=== PATIENT | female | born 1975 | race Caucasian/White ===

== ENCOUNTER 2020-03-08 10:08 | Outpatient (CLI) | payer BC, OTHER, SELFPAY ==
--- NOTE | 2020-03-08 10:19 | MM_ITS ---
WS: [id number] BILATERAL DIGITAL SCREENING MAMMOGRAPHY WITH CAD CLINICAL INFORMATION: SCREEN HISTORY: Screening mammogram. No current complaints. COMPARISON: None. TECHNIQUE: Bilateral CC and MLO views. FINDINGS: Scattered fibroglandular densities bilaterally. No suspicious focal mass, asymmetry, calcifications, or architectural distortion. No evidence of malignancy. MM/[place] [id number] IMPRESSION: BI-RADS: 1-Negative FOLLOW UP: 1 Year Follow-up Recommend return to annual screening mammography.
== END 2020-03-08 10:09 | disposition home or self-care (01) ==
LOC: RADSHAW 10:12
PROVIDERS: PCP Family Medicine; Visit Provider Family Medicine
DX: Z12.31 Encounter for screening mammogram for malignant neoplasm of breast (principal)
CPT/HCPCS: 77067

== ENCOUNTER 2020-07-13 10:25 | Outpatient (CLI) | payer BC, SELFPAY ==
--- NOTE | 2020-07-13 10:52 | XR_ITS ---
WS: [id number] Chest 2 views, 07/13/2020 Clinical Data: COUGH Comparison: PA chest, 05/05/2019. Findings: No nodules, masses or effusions are seen. The heart is normal. The pulmonary vascularity is not increased. No pneumonia or pneumothorax is seen. There is a slight dextroscoliosis of the lower thoracic spine. XR/XR chest 2V* 19782 Impression: Negative chest.
== END 2020-07-13 10:26 | disposition home or self-care (01) ==
PROVIDERS: PCP Family Medicine; Visit Provider Family Medicine
DX: R05 Cough (principal)
CPT/HCPCS: 71046

== ENCOUNTER 2021-09-25 08:59 | Outpatient (CLI) | payer BC, SELFPAY ==
--- NOTE | 2021-09-25 09:25 | MM_ITS ---
WS: [id number] BILATERAL 3D TOMOSYNTHESIS DIGITAL SCREENING MAMMOGRAPHY WITH CAD CLINICAL INFORMATION: SCREENING HISTORY: Screening mammogram. No current complaints. COMPARISON: March 08, 2020 TECHNIQUE: Bilateral CC and MLO views. FINDINGS: Scattered fibroglandular densities bilaterally. No suspicious focal mass, asymmetry, calcifications, or architectural distortion. No evidence of malignancy. MM/[place] [id number] IMPRESSION: BI-RADS: 1-Negative FOLLOW UP: 1 Year Follow-up Recommend return to annual screening mammography.
== END 2021-09-25 09:00 | disposition home or self-care (01) ==
LOC: RAD 09:01
PROVIDERS: PCP Family Medicine; Visit Provider Family Medicine
DX: Z12.31 Encounter for screening mammogram for malignant neoplasm of breast (principal)
CPT/HCPCS: 77063; 77067

== ENCOUNTER → 2022-11-28 08:36 | Outpatient (BNVA) | payer OTHER, SELFPAY | PROVIDERS: PCP Family Medicine; Visit Provider Family Medicine | DX: Z00.00 Encounter for general adult medical examination without abnormal findings (principal); Z78.9 Other specified health status | CPT/HCPCS: 80053; 80061; 84443; 87624 ==

== ENCOUNTER 2022-12-14 11:10 | Outpatient (CLI) | payer OTHER, SELFPAY ==
--- NOTE | 2022-12-14 11:22 | MM_ITS ---
WS: [id number] BILATERAL 3D TOMOSYNTHESIS DIGITAL SCREENING MAMMOGRAPHY WITH CAD CLINICAL INFORMATION: SCREENING HISTORY: Screening mammogram. No current complaints. COMPARISON: September 25, 2021 TECHNIQUE: Bilateral CC and MLO views. FINDINGS: Scattered fibroglandular densities bilaterally. No suspicious focal mass, asymmetry, calcifications, or architectural distortion. No evidence of malignancy. MM/[place] [id number] IMPRESSION: BI-RADS: 1-Negative FOLLOW UP: 1 Year Follow-up Recommend return to annual screening mammography.
== END 2022-12-14 11:11 | disposition home or self-care (01) ==
LOC: RAD 11:14
PROVIDERS: PCP Family Medicine; Visit Provider Family Medicine
DX: Z12.31 Encounter for screening mammogram for malignant neoplasm of breast (principal)
CPT/HCPCS: 77063; 77067; 80053; 80061; 84443; 87624

== ENCOUNTER → 2023-04-01 16:02 | Outpatient (BNVA) | payer OTHER, SELFPAY | PROVIDERS: PCP Family Medicine; Visit Provider Family Medicine | DX: R19.7 Diarrhea, unspecified (principal); R10.9 Unspecified abdominal pain | CPT/HCPCS: 80053; 83690; 85025; 86140 ==

== ENCOUNTER → 2023-04-03 08:30 | Outpatient (BNVA) | payer OTHER, SELFPAY | PROVIDERS: PCP Family Medicine; Visit Provider Family Medicine | DX: R10.9 Unspecified abdominal pain (principal); R19.7 Diarrhea, unspecified | CPT/HCPCS: 87045; 87177; 87209; 87324; 87427; 87449 ==

== ENCOUNTER → 2023-09-06 09:53 | Outpatient (BNVA) | payer OTHER, SELFPAY | PROVIDERS: PCP Family Medicine; Visit Provider Clinical Nurse Specialist Adult Health | DX: N92.1 Excessive and frequent menstruation with irregular cycle (principal); N85.2 Hypertrophy of uterus; D25.9 Leiomyoma of uterus, unspecified; R93.89 Abnormal findings on diagnostic imaging of other specified body structures | CPT/HCPCS: 82728; 83550; 84466; 85025; 85610 ==

== ENCOUNTER 2023-09-11 08:13 | Outpatient (CLI) | payer OTHER, SELFPAY ==
--- NOTE | 2023-09-11 08:30 | US_ITS ---
WS: [id number] Pelvic ultrasound, 09/11/2023 Clinical Data: heavy menstrual cycles and ovarian pain Comparison: Pelvic ultrasound, 02/20/2018 Findings: The uterus measures 13.7 cm x 8.4 cm x 7.3 cm. The uterine echotexture is mixed with multiple uterine fibroids. The endometrium is 1.1 cm. No intrauterine is seen. The endometrium appears thickened. The cervix shows no abnormalities. The ovaries were not imaged. There is no fluid in the cul-de-sac. Impression: Enlarged uterus with multiple uterine fibroids and thickened endometrium.
== END 2023-09-11 08:14 | disposition home or self-care (01) ==
LOC: RAD 08:13
PROVIDERS: PCP Family Medicine; Visit Provider Clinical Nurse Specialist Adult Health
DX: N92.1 Excessive and frequent menstruation with irregular cycle (principal); N85.2 Hypertrophy of uterus; R93.89 Abnormal findings on diagnostic imaging of other specified body structures; D25.9 Leiomyoma of uterus, unspecified
CPT/HCPCS: 76830; 76856; 82728; 83550; 84466; 85025; 85610

== ENCOUNTER 2023-10-22 13:26 | Day surgery (SDC) | payer OTHER, SELFPAY ==
[2023-10-21 09:26] LABS: Basophils # 0.1 10^3/uL (0.0-0.1); Basophils % 0.8 %; Eosinophils # 0.1 10^3/uL (0.0-0.8); Eosinophils % 1.2 %; Hematocrit 38.7 % (36-47); Lymphocytes # 2.4 10^3/uL (0.8-4.8); Mean Corpuscular Hemoglobin 30.6 pg (27-33); Mean Corpuscular Volume 95.6 fl (85-98); Mean Platelet Volume 10.4 fL (7.4-10.4); Monocytes # 0.5 10^3/uL (0.2-0.9); Monocytes % 6.1 %; Neutrophils # 5.52 10^3/uL (1.8-7.7); Neutrophils % 63.4 %; Nucleated Red Blood Cells % 0 %; Platelet Count 280 10^3/cmm (157-399); Red Blood Count 4.05 10^6/uL (3.85-5.65); Red Cell Distribution Width 13.6 % (12.1-15.1); White Blood Count 8.69 10^3/uL (3.29-11.43)
[2023-10-21 09:49] LABS: Anion Gap 17.1 (5-19); Blood Urea Nitrogen 11 mg/dL (6-20); Calcium 9.1 mg/dL (8.5-10.5); Carbon Dioxide 24 mmol/L (22-29); Chloride 104 mmol/L (98-107); Glomerular Filtration Rate 132.2 mL/min (90-130); Glucose 117 mg/dL (65-115); Osmolality Calculated 292 mOsm/kg (285-295); Potassium 4.1 mmol/L (3.5-5.1); Sodium 141 mmol/L (136-145)
[2023-10-22] VITALS (9 sets, daily range): BP systolic 135–201; BP diastolic 78–119; PULSE 82–89; RESP 16–18; TEMP 36.1–37.2; O2SAT 95–100
--- NOTE | 2023-10-22 13:08 | ANES.PREANE2 ---
Pre-Anesthetic Assessment Height/Weight: Height 1.6 m Operation Date: 10/22/23 15:00 Proposed Procedures p Hysteroscopy w/ Myosure 16705, 82249, N93.9, R93.89(Not Applicable) - Pradip Fofana MD s Dilation And Curettage (D&C)(Not Applicable) - Pradip Fofana MD Was Beta Marnie taken within 24 hours: Yes Social No alcohol and No tobacco Exam alert, oriented x 3, clear to auscultation bilaterally and regular rate & rhythm Airway Submandibular: within normal limits Cervical ROM: within normal limits Mallampati: Class II History/ROS No significant history except as noted GI Cholelithiasis Metabolic Obesity Neuropsych Headache Anesthetic Plan ASA status: 2 Anesthesia: General Medications/Allergies Home Medications Medication Instructions Recorded Confirmed Last Taken Type atorvastatin 10 mg tablet (Lipitor) 10 mg PO DAILY #90 tabs 11/28/22 10/21/23 10/20/23 Rx escitalopram oxalate 10 mg tablet 10 mg PO DAILY #90 tabs 11/28/22 10/21/23 10/21/23 Rx (Lexapro) metoclopramide HCl 10 mg tablet 10 mg PO TID PRN nausea and 11/28/22 10/21/23 Unknown Rx (Reglan) vomiting #60 tabs norethindrone 0.5 mg-ethinyl 1 tab PO DAILY #84 tabs 11/28/22 10/21/23 10/20/23 Rx estradiol 35 mcg tablet (Nortrel) sumatriptan succinate 100 mg 50 mg (1/2 x 100 mg) PO .Q4 PRN 11/28/22 10/21/23 Unknown Rx tablet (Imitrex) migraine headache #10 tabs propranolol 20 mg tablet 20 mg PO BID #180 tabs 10/02/23 10/21/23 10/21/23 Rx cholestyramine (with sugar) 4 gram 1 ea PO DAILY 10/21/23 10/21/23 10/21/23 History oral powder ferrous sulfate 27 mg iron tablet 27 mg PO DAILY 10/21/23 10/21/23 10/20/23 History Allergies Allergy/AdvReac Type Severity Reaction Status Date / Time Penicillins Allergy Intermediate rash Verified 10/17/23 13:53 simvastatin [From Zocor] Allergy Intermediate back pain Verified 10/17/23 13:53 Sulfa (Sulfonamide Allergy Intermediate hives Verified 10/17/23 13:53 Antibiotics) [facility] Anesthesia Medical History Migraine Hyperlipidemia Female Reproductive History Date of last menstrual period: 09/03/23 Data Anesthesia 10/21/23 09:18 10/21/23 09:18 Short CBC 10/21/23 Range/Units 09:18 WBC 8.69 (3.29-11.43) 10^3/uL Hgb 12.40 (11.27-16.99) g/dL Hct 38.7 (36-47) % MCV 95.6 (85-98) fl Plt Count 280 (157-399) 10^3/cmm Neut % (Auto) 63.4 % Neut # (Auto) 5.52 (1.8-7.7) 10^3/uL BMP 10/21/23 09:18 Sodium 141 Potassium 4.1 Chloride 104 Carbon Dioxide 24 BUN 11 Creatinine 0.5 Glucose 117 H Calcium 9.1 Cardiac Studies: No Data to Display
[2023-10-22] MEDS: sodium chloride 0.9% 1,000 ML 30 ML IV (13:55)
[2023-10-22] MEDS: levofloxacin-dextrose 5 % 500 MG/100 ML PREMIX 100 MG IV (13:57)
[2023-10-22] MEDS: scopolamine 1.5 Patch 1 PATCH TRANSDERMA (14:01)
[2023-10-22 14:07] LABS: OR HCG Qualitative Urine Negative (Negative)
--- NOTE | 2023-10-22 14:25 | W.PM.OPSUD ---
Surgery/Procedure H&P Update DATE OF PROCEDURE: October 22, 2023 DATE H&P PERFORMED: 10/17/23 H&P UPDATE INFORMATION: I have reviewed H&P completed within last 30 days, I have examined patient prior to procedure and No changes to prior documentation PREOP DIAGNOSIS: Menorrhagia with irregular cycle PLANNED PROCEDURE: Operation Date: 10/22/23 15:00 Proposed Procedures p Hysteroscopy w/ Myosure 71694, 26508, N93.9, R93.89(Not Applicable) - Pradip Fofana MD s Dilation And Curettage (D&C)(Not Applicable) - Pradip Fofana MD
[2023-10-22] MEDS: vancomycin 1,000 MG in sodium chloride 0.9% 250 ML 250 MG IV (14:34)
[2023-10-22] MEDS: lidocaine-epi 2% PF 1:200,000 20 mL SDV XX (15:05)
--- NOTE | 2023-10-22 15:25 | PM.OP ---
Operative Report Date of procedure: October 22, 2023 Pre-op diagnosis: Menorrhagia with irregular cycle Post-op diagnosis: same Post-op findings: Endometrial polyp Procedure done: Hysteroscopy Hysteroscopic polypectomy via MyoSure Specimens removed/disposition: Endometrial polyp Pathology: Endometrial polyp Surgeon: Pradip oFfana MD Estimated blood loss (mL): 20 IV fluids (mL): 400 Complications: None Findings: Endometrial polyp Procedure: After informed consent, the risks included but were not limited to bleeding, infection, injury to internal organs. The patient was counseled on a possible laparotomy and on the potential need for hysterectomy. The patient expressed understanding of the risks involved, all questions were answered, and the patient consented to the procedure. The patient was taken to the operating room where general anesthesia was administered. She was placed in the dorsal lithotomy position and prepped and draped in sterile fashion. A time out procedure was performed. The patient was examined under anesthesia and found to have a normal uterus with normal adnexa. A sterile weight speculum was placed in the vagina. The uterus was then gently sounded to 8 cm, and the cervix was dilated. The 0 degrees MyoSure hysteroscope was advanced gently to the uterine fundus while visualizing the monitor. Survey of the uterine cavity showed: Endometrial polyp to right anterior/fundal wall, the fundus shows normal proliferative endometrium; left ostium was visualized, and lateral wall with proliferative endometrium; right ostium visualized, and lateral wall with proliferative endometrium; anterior and posterior gandhi are with proliferative endometrium; endocervical canal is normal. The MyoSure device was advanced and the direct visualization the the endometrial polyp was morcellated without complication. At the end of morcellation the fluid deficit was 325 mL and was estimated at approximately 200 mL were on the floor. There was minimal bleeding noted and the tenaculum removed with goad hemostasis noted. The patient tolerated the procedure well. The patient was taken to the recovery area in stable condition.
--- NOTE | 2023-10-22 16:47 | ANE.PACU2 ---
Inpatient post-anesthesia follow up: Vital signs: Temperature 98.9 F Pulse Rate 86 Respiratory Rate 18 Blood Pressure 153/81 Pulse Oximetry 96 Oxygen Delivery Me thod Room Air Oxygen Flow Rate 6 Fraction of Inspir ed Oxygen Hydration adequate: Yes Nausea and vomiting: No Pain level: 3 Mental status: Baseline
== END 2023-10-22 16:39 | disposition home or self-care (01) ==
PROVIDERS: PCP Family Medicine; Visit Provider Obstetrics & Gynecology
PROC: 0UDB8ZZ Extraction of Endometrium, Via Natural or Artificial Opening Endoscopic (ICD-10-PCS; CPT 58558; principal; 2023-10-22 14:50)
PROC: (CPT 58120; 2023-10-22 14:50)
DX: N92.1 Excessive and frequent menstruation with irregular cycle (principal); E66.9 Obesity, unspecified; Z68.42 Body mass index [BMI] 45.0-49.9, adult; E78.5 Hyperlipidemia, unspecified
CPT/HCPCS: 58558; 36415; 80048; 81025; 85025; 86850; 86900; 88305; J1100; J1885; J1956; J2250; J2405; J2704; J3010; J3370; J7030; J7050

== ENCOUNTER → 2023-12-10 10:36 | Outpatient (BNVA) | payer OTHER, SELFPAY | PROVIDERS: PCP Family Medicine; Visit Provider Family Medicine | DX: E78.5 Hyperlipidemia, unspecified (principal); G43.909 Migraine, unspecified, not intractable, without status migrainosus; Z79.899 Other long term (current) drug therapy | CPT/HCPCS: 80053; 80061 ==

== ENCOUNTER 2023-12-23 14:46 | Outpatient (CLI) | payer OTHER, SELFPAY ==
--- NOTE | 2023-12-23 14:52 | MM_ITS ---
WS: [id number] SCREENING DIGITAL TOMOSYNTHESIS MAMMOGRAM WITH CAD HISTORY: SCREEN COMPARISON: 12/14/2022, 09/25/2021 Bilateral CC and MLO with tomosynthesis views submitted. Synthetic mammography reviewed. Computer aid ed detection analyzed. Breast composition: There are scattered areas of fibroglandular density. No suspicious masses, microc alcifications or architectural distortion. MM/[place] [id number] IMPRESSION: BI-RADS: 1-Negative FOLLOW UP: 1 Year Follow-up
== END 2023-12-23 14:47 | disposition home or self-care (01) ==
LOC: RAD 14:47
PROVIDERS: PCP Family Medicine; Visit Provider Family Medicine
DX: Z12.31 Encounter for screening mammogram for malignant neoplasm of breast (principal); R92.323 Mammographic fibroglandular density, bilateral breasts
CPT/HCPCS: 77063; 77067

== ENCOUNTER 2024-03-10 12:28 | Inpatient (IN) | payer OTHER, SELFPAY ==
--- NOTE | 2024-03-09 12:28 | ANES.PREANE2 ---
Pre-Anesthetic Assessment Height/Weight: Height 5 ft 3 in Preop Diagnosis: Desire for sterilization/hysterectomy Operation Date: 03/10/24 08:00 Proposed Procedures p Total Vaginal Hysterectomy 76209, D25.9, 12698(Not Applicable) - Pradip Fofana MD s Oophorectomy (Vaginal)(Bilateral) - Pradip Fofana MD Was Beta Marnie taken within 24 hours: N/A Was Clonidine taken within 24 hours: N/A Social No alcohol and No tobacco Exam alert, oriented x 3, clear to auscultation bilaterally and regular rate & rhythm Airway Submandibular: within normal limits Cervical ROM: within normal limits Mallampati: Class II Dentition: full Anesthetic Plan ASA status: 2 Anesthesia: General Other: No prior issues with anesthesia Plan for n.p.o. after midnight Patient denies any pulmonary or cardiac issues Occasional migraines Labs 12/10/2023 reviewed METs greater than 4 Plan for GETA Medications/Allergies Home Medications Medication Instructions Recorded Confirmed Last Taken Type metoclopramide HCl 10 mg tablet 10 mg PO TID PRN nausea and 11/28/22 03/09/24 Unknown Rx (Reglan) vomiting #60 tabs sumatriptan succinate 100 mg 50 mg (1/2 x 100 mg) PO .Q4 PRN 11/28/22 03/09/24 Unknown Rx tablet (Imitrex) migraine headache #10 tabs acetaminophen 325 mg capsule 325 mg PO Q4H PRN fever or pain 10/22/23 03/09/24 Unknown Rx #60 caps ibuprofen 800 mg tablet 800 mg PO TID PRN pain #60 tabs 10/22/23 03/09/24 Unknown Rx cholestyramine (with sugar) 4 gram 1 ea PO DAILY #378 grams 12/09/23 03/09/24 03/09/24 Rx oral powder escitalopram oxalate 10 mg tablet 10 mg PO DAILY #90 tabs 12/09/23 03/09/24 03/09/24 Rx (Lexapro) norethindrone 0.5 mg-ethinyl 1 tab PO DAILY #84 tabs 12/09/23 03/09/24 03/09/24 Rx estradiol 35 mcg tablet (Nortrel) propranolol 20 mg tablet 20 mg PO BID #180 tabs 12/09/23 03/09/24 03/09/24 Rx atorvastatin 20 mg tablet 20 mg PO DAILY #90 tabs 12/30/23 03/09/24 03/09/24 Rx Allergies Allergy/AdvReac Type Severity Reaction Status Date / Time Penicillins Allergy Intermediate rash Verified 03/05/24 15:54 simvastatin [From Zocor] Allergy Intermediate back pain Verified 03/05/24 15:54 Sulfa (Sulfonamide Allergy Intermediate hives Verified 03/05/24 15:54 Antibiotics) PFSH Anesthesia Medical History Migraine Hyperlipidemia Social History Smoking and tobacco/nicotine status: never used tobacco/nicotine Female Reproductive History Date of last menstrual period: 02/26/24 Data Anesthesia Cardiac Studies: No Data to Display
[2024-03-10] VITALS (36 sets, daily range): BP systolic 65–193; BP diastolic 41–116; PULSE 88–118; RESP 16–25; TEMP 36.1–37; O2SAT 91–100; BMI 47.9; BMI 48.8
[2024-03-10 08:07] LABS: Add Urine Microscopic? NO
[2024-03-10] MEDS: scopolamine 1.5 Patch 1 PATCH TRANSDERMA (08:17)
[2024-03-10] MEDS: sodium chloride 0.9% 500 ML IV (08:17)
[2024-03-10 08:18] LABS: Bilirubin Urine Neg (Negative); Blood Urine Neg (Negative); Charge for UA Resulting for Rev; Glucose Urine UA Norm (Normal); Ketones Urine Negative (Negative); Leukocyte Esterase Urine Negative (Negative); Nitrate Urine Negative (Negative); Protein Urine Neg (Negative); Urine Appearance Clear (CLEAR); Urine Color Yellow (Yellow); Urobilinogen Urine Norm (Negative); pH Urine 5 (5-7)
[2024-03-10] MEDS: sodium chloride 0.9% 1,000 ML 30 ML IV (08:18)
[2024-03-10 08:35] LABS: Basophils # 0.1 10^3/uL (0.0-0.1); Basophils % 0.8 %; Eosinophils # 0.1 10^3/uL (0.0-0.8); Eosinophils % 1.4 %; Hematocrit 39.7 % (36-47); Lymphocytes # 2.4 10^3/uL (0.8-4.8); Lymphocytes % 27.9 %; Mean Corpuscular HGB Conc 32.5 g/dL (30-55); Mean Corpuscular Hemoglobin 29.9 pg (27-33); Mean Corpuscular Volume 92.1 fl (85-98); Mean Platelet Volume 10.4 fL (7.4-10.4); Monocytes # 0.6 10^3/uL (0.2-0.9); Monocytes % 7.5 %; Neutrophils # 5.22 10^3/uL (1.8-7.7); Neutrophils % 61.9 %; Nucleated Red Blood Cells % 0 %; Platelet Count 262 10^3/cmm (157-399); Red Blood Count 4.31 10^6/uL (3.85-5.65); Red Cell Distribution Width 12.7 % (12.1-15.1); White Blood Count 8.43 10^3/uL (3.29-11.43)
--- NOTE | 2024-03-10 08:37 | P.ANESUD_ITS ---
Pre-Anesthetic Update Pre-Anesthetic Assessment: Date of Surgery/Procedure: 03/10/24 Preop Dania gnosis: Uterine fibroids Proposed Procedure: Operation Date: 03/10/24 09:20 Proposed Procedures p Total Vaginal Hysterectomy 02672, D25.9, 01475(Not Applicable) - Pradip Fofana MD s Oophorectomy (Vaginal)(Bilateral) - Pradip Fofana MD Changes from Pre-Anesthetic Assessment: No changes since yesterday Patient's is present Plan for GETA Last Intake: Intake Last Liquid Date 03/09/24 Last Liquid Time 21:00 Last Solid Date 03/09/24 Last Solid Time 18:00 Labs Last 48hrs: Short CBC 03/10/24 Range/Units 08:20 WBC 8.43 (3.29-11.43) 10^ 3/uL Hgb 12.90 (11.27-16.99) g/ dL Hct 39.7 (36-47) % MCV 92.1 (85-98) fl Plt Count 262 (157-399) 10^3/c mm Neut % (Auto) 61.9 % Neut # (Auto) 5.22 (1.8-7.7) 10^3/u L Urine 03/10/24 Range/Units 08:00 Urine Color Yellow (Yellow) Urine Appearance Clear (CLEAR) Urine pH 5 (5-7) Ur Specific Gravit y 1.020 (1.005-1.030) Urine Protein Neg (Negative) Urine Glucose (UA) Norm (Normal) Urine Ketones Negative (Negative) Urine Nitrate Negative (Negative) Urine Bilirubin Neg (Negative) Ur Leukocyte Alcira ase Negative (Negative) Vitals: Pulse Rhythm Regular 03/10/24 08:10 Pulse Strength 3+ Normal 03/10/24 08:10 Oxygen Delivery Me thod Room Air 03/10/24 08:10 Cardiac Studies: No Data to Display
[2024-03-10] MEDS: levofloxacin-dextrose 5 % 500 MG/100 ML PREMIX 100 MG IV (08:43)
[2024-03-10 08:49] LABS: OR HCG Qualitative Urine Negative (Negative)
[2024-03-10 08:58] LABS: Alanine Aminotransferase 20 U/L (0-33); Albumin Level 4.2 g/dL (3.5-5.2); Alkaline Phosphatase 83 U/L (35-105); Anion Gap 21.3 (5-19); Aspartate Amino Transferase 26 U/L (0-32); Blood Urea Nitrogen 14 mg/dL (6-20); Calcium 9.6 mg/dL (8.5-10.5); Carbon Dioxide 21 mmol/L (22-29); Chloride 101 mmol/L (98-107); Creatinine Clr Calc Pharmacy 177.0052; Globulin 3.6 g/dL (1.3-4.6); Glomerular Filtration Rate 132.2 mL/min (90-130); Glucose 122 mg/dL (65-115); Osmolality Calculated 290 mOsm/kg (285-295); Potassium 4.3 mmol/L (3.5-5.1); Sodium 139 mmol/L (136-145); Total Bilirubin 0.4 mg/dL (0.15-1.2); Total Protein 7.8 g/dL (6.6-8.7)
--- NOTE | 2024-03-10 08:59 | W.PM.OPSUD ---
Surgery/Procedure H&P Update DATE OF PROCEDURE: March 10, 2024 DATE H&P PERFORMED: 03/05/24 H&P UPDATE INFORMATION: I have reviewed H&P completed within last 30 days, I have examined patient prior to procedure and No changes to prior documentation PREOP DIAGNOSIS: Uterine fibroids PLANNED PROCEDURE: Operation Date: 03/10/24 09:20 Proposed Procedures p Total Vaginal Hysterectomy 38652, D25.9, 86800(Not Applicable) - Pradip Fofana MD s Oophorectomy (Vaginal)(Bilateral) - Pradip Fofana MD
[2024-03-10] MEDS: metroNIDAZOLE IV 500 MG/100 ML PREMIX 100 MG IV (09:07)
[2024-03-10] MEDS: lidocaine-epi 2% PF 1:200,000 20 mL SDV INJECTION (10:38)
--- NOTE | 2024-03-10 12:07 | PM.OP ---
Operative Report Date of procedure: March 10, 2024 Pre-op diagnosis: Fibroid uterus, abnormal uterine bleeding Post-op diagnosis: same Post-op findings: Irregular fibroid uterus Procedure done: Total abdominal hysterectomy with bilateral salpingo-oophorectomy Specimens removed/disposition: Uterus Left the right fallopian tube and ovaries Surgeon: Pradip Fofana MD Estimated blood loss (mL): 1,000 IV fluids: NA: 1600 ml Albumin: 250 ml Urine output (mL): 50 Complications: Bleeding Findings: enlarged irregular uterus. Procedure: After informed consent and risks, benefits, indications and alternatives reviewed with the patient was taken to the operating room. The patient was placed in dorsal lithotomy position prepped, and draped in the usual sterile fashion. The pre-procedure timeout verifying the correct patient, procedure, site and side, could not requirements was performed and acknowledge by the OR team. A Mcguire catheter was placed. A Bookwalter vaginal retractor was placed into the vagina in usual manner visualize the cervix. Cervix was grasped with a single tooth tenaculum and circumferentially infiltrated with 2% lidocaine with epinephrine. Then cervix was circumferentially incised with bovie and the bladder was dissected off the pubovesical cervical fascia anteriorly with a sponge stick and Metzenbaum scissors. The anterior peritoneal reflection was identified and the anterior cul-de-sac was entered sharply with Metzenbaum scissors. The same procedure was performed posteriorly and a posterior colpotomy was made through the posterior cul-de-sac space without difficulty and the posterior blade of the Bookwalter vaginal retractor was advanced posteriorly into the cul-de-sac. At this time, the left and right uterosacral ligaments were isolated and ligated with 0 Vicryl. The LigaSure device was placed over the uterosacral ligaments on either side and was then used in a serial fashion up through the cardinal ligaments bilaterally cross-clamped, cut, and sealed with the LigaSure device. Finally, the uterine arteries were cross-clamped, cut, sealed and ligated with the LigaSure device. Hemostasis was assured. The broad ligaments were then serially clamped, sealed and cut with the LigaSure device on both sides. Excellent hemostasis was visualized. Both cornua were clamped, sealed and cut with the LigaSure device. Then the pedicles were then suture ligated with hemostasis. The uterus was excised and submitted for pathologic evaluation. Significant bleeding noted from left side. The pedicle was grasped to Lloyd clamps clamps grasped with ligasure device, sealed and ligated ligated. The same procedure was performed on the opposite side. Bleeding was controlled. No other abnormalities were noted in the pelvic cavity. Then the right side Infundibular ligament was identified. The ureter was confirmed along the pelvic side wall. With moderate dificulty due to body habitus the LigaSure device was then used to clamp, sealed and transcepted at middistance, again being sure to be clear of the ureter and the fallopian tube and ovary were removed. The same process was then repeated on the left side. Good hemostasis was assure on both sides. Surgicell was place at the cuff. The peritoneum was then closed in a pursestring fashion with 0 Vicryl suture. The vaginal cuff angles were closed with [id number] #0 Vicryl suture on both sides and transfixed with the ipsilateral cardinal and uterosacral ligaments. The remainder of the vaginal cuff was closed with #0 Vicryl in a running locked fashion. At this time, instruments were removed from the vagina at hemostasis assured. Type and crossmatch for 2 units of packed red blood cells was ordered due to to the complication of bleeding. Mcguire catheter was noted yielding clear eric urine. A vaginal packing was placed and the patient was taken out of dorsal lithotomy position and awakened from the general anesthesia. The patient tolerated the procedure well and was taken to the PACU recovery room in a stable condition. Sponge, lap, needle and instruments counts were correct x3.
--- NOTE | 2024-03-10 12:25 | P.BOP_ITS ---
Date of Procedure: 03/10/24 Surgeon: Pradip Fofana MD Long Term Care Phlebotomist(s): Procedure(s) performed: Total vaginal hysterectomy with bilateral salpingo- oophorectomy Findings of the procedure(s): Enlarged irregular uterus Estimated blood loss: 1000 Specimen(s) removed: Uterus, left and right fallopian tube and ovary Post-operative diagnosis: Status post TVH and BSO Complication: Bleeding
[2024-03-10 12:55] LABS: Hematocrit 29.6 % (36-47)
--- NOTE | 2024-03-10 12:56 | SUR.PHASEI ---
ultrasound done at bedside with Dr. Fofana and Dr. Fitch, pt taken back to OR.
[2024-03-10] MEDS: BUPivacaine 0.5% INJ 30 mL 20 ML INJECTION (13:50)
[2024-03-10] MEDS: BUPivacaine liposome 13.3 mg/mL SDV 20 mL 266 MG INFILTRATI (13:51)
[2024-03-10] MEDS: vancomycin 1,500 MG/300 ML PIGGYBACK 200 MG IV (14:26)
--- NOTE | 2024-03-10 15:13 | P.CONIM_ITS ---
Providers/Reason For Consult 2 Consulting Physician/Specialty*: General surgery Reason for Consult*: Intraoperative finding of mass involving the small bowel loops Attending Physician: Pradip Fofana MD Primary Care Provider: Gilbert Walker MD History of Present Illness History of Present Illness Olga Francois is a 48 year old female history of chronic pelvic pain who presented for transvaginal hysterectomy. After hysterectomy patient noted to be hypotensive and FAST exam was positive for intra-abdominal bleeding therefore she was taken back to the OR by HEAD OF IT for exploration, during explained ration a large mass which appeared to be either from uterine or ovarian origin was noted there was a mass was dissected by the HEAD OF IT team and then it was noted that it was attached to the sigmoid colon and also the small bowel I was consulted for intraoperative assistance Review of Systems 2 General: Reports: ROS unobtainable due to medical condition Medications/Allergies Home Medications Medication Instructions Recorded Confirmed Last Taken Type metoclopramide HCl 10 mg tablet 10 mg PO TID PRN nausea and 11/28/22 03/09/24 Unknown Rx (Reglan) vomiting #60 tabs sumatriptan succinate 100 mg 50 mg (1/2 x 100 mg) PO .Q4 PRN 11/28/22 03/09/24 Unknown Rx tablet (Imitrex) migraine headache #10 tabs acetaminophen 325 mg capsule 325 mg PO Q4H PRN fever or pain 10/22/23 03/09/24 Unknown Rx #60 caps ibuprofen 800 mg tablet 800 mg PO TID PRN pain #60 tabs 10/22/23 03/09/24 Unknown Rx cholestyramine (with sugar) 4 gram 1 ea PO DAILY #378 grams 12/09/23 03/09/24 03/09/24 Rx oral powder escitalopram oxalate 10 mg tablet 10 mg PO DAILY #90 tabs 12/09/23 03/09/24 03/09/24 Rx (Lexapro) norethindrone 0.5 mg-ethinyl 1 tab PO DAILY #84 tabs 12/09/23 03/09/24 03/09/24 Rx estradiol 35 mcg tablet (Nortrel) propranolol 20 mg tablet 20 mg PO BID #180 tabs 12/09/23 03/09/24 03/09/24 Rx atorvastatin 20 mg tablet 20 mg PO DAILY #90 tabs 12/30/23 03/09/24 03/09/24 Rx Allergies Allergy/AdvReac Type Severity Reaction Status Date / Time Penicillins Allergy Intermediate rash Verified 03/10/24 08:04 simvastatin [From Zocor] Allergy Intermediate back pain Verified 03/10/24 08:04 Sulfa (Sulfonamide Allergy Intermediate hives Verified 03/10/24 08:04 Antibiotics) Current Medications Generic Name Dose Route Start Last Admin Trade Name Freq PRN Reason Stop Dose Admin Sodium Chloride 1,000 mls @ 30 mls/hr 03/10/24 08:00 03/10/24 11:54 Sodium Chloride 0.9% IV 03/11/24 07:59 Infused .Q24H TRINY Infusion Vancomycin HCl 1,500 mg in 300 mls @ 200 mls/hr 03/10/24 14:11 03/10/24 14:26 Vancocin IV 03/10/24 15:40 200 mls/hr ONCE ONE Administration Protocol PFSH Acute 2 PFSH: Medical History Migraine Hyperlipidemia Social History Smoking and tobacco/nicotine status: never used tobacco/nicotine Female Reproductive History: Date of last menstrual period: 02/26/24 Vitals/I&O/Wt Last Vital Signs Temp 97.0 F L 03/10/24 12:21 Pulse 106 H 03/10/24 13:00 Resp 18 03/10/24 13:00 BP 112/50 03/10/24 13:00 Pulse Ox 95 03/10/24 13:00 O2 Del Method Simple Mask 03/10/24 13:00 O2 Flow Rate 6 03/10/24 13:00 03/10/24 03/10/24 03/10/24 06:59 14:59 22:59 Intake Total 2700 / 2700 Output Total 1100 / 1100 Balance 1600 / 1600 Weight last 48 hrs Weight 271 lb Physical Exam 2 Narrative: Patient examined in the OR room, unable to complete physical examination Urinary Catheter Management: Mcguire: Cath Placed During This Visit: yes Urinary Catheter Date of Insertion: 03/10/24 Urinary Catheter Time of Insertion: 10:11 Data 03/10/24 12:34 03/10/24 08:20 A&P Assessment and plan (1) Intraabdominal mass: Plan Due to the emergent nature of the case I proceeded directly to the operative room to assist HEAD OF IT. Upon arrival I noted a large mass that had attachments to the sigmoid colon and the small bowel, the attachment to the sigmoid colon was easily lysed with sharp dissection but unfortunately the attachment to the small bowel was pretty significant, extensive blunt and sharp dissection was required in order to release the mass. Once the mass was released a serosal tear was noted on the small bowel at the level of the mesenteric border, this was repair with #3-0 Vicryl. I have requested the patient remains n.p.o. with an NG tube to low intermittent wall suction to wait for return of bowel function. I will continue to follow the patient. -NG to low intermittent wall suction -Continue perioperative antibiotics at least for the next 24 to 48 hours -I will continue to follow-up on that daily basis. -In the morning patient should be ambulating to facilitate return of bowel function. -Please minimize opioids to prevent ileus. Coding Level of Care Code 68183 Diagnoses Intraabdominal mass R19.00
--- NOTE | 2024-03-10 15:17 | PM.OP ---
Operative Report Date of procedure: March 10, 2024 Pre-op diagnosis: Fibroid uterus, abnormal uterine bleeding Post-op diagnosis: Same Post-op findings: There was a large mass measuring around 15 x 10 cm x 10 cm which was attached to the small bowel and also the sigmoid colon. Procedure done: Intra-abdominal lysis of additions, repair of small bowel serosal tear Specimens removed/disposition: Intra abdominal mass ovarian versus uterine Surgeon: Isidoro Menon MD, Pradip Fofana MD Estimated blood loss: 150cc Disposition: other (Remain in the OR) Brief History: Is a 48-year-old female with chronic pelvic pain who presented for transvaginal hysterectomy. After hysterectomy she was noted to have possible intra-abdominal bleeding was taken back to the OR for exploratory laparotomy with HOT END OPERATOR, I was called for intraoperative consultation as a large mass was noted and the mass was noted to be fixed to the small bowel and sigmoid colon. Due to the emergent nature of the case I proceeded directly to the operating room. Procedure: I arrived to the operative room and the patient was already under general anesthesia and undergoing an exploratory laparotomy via Pfannenstiel incision. The intra-abdominal mass had been delivered through the incision and was noted to be attached to the sigmoid colon and small bowel. Attachment to the sigmoid colon was fibrous in nature, a good clip explained was noted between the mass and the sigmoid colon and this was used to proceed with lysis of the adhesions using sharp dissection and electrocautery. Once the mass was from the colon this was noted to be intact and no evidence of bleeding was noted. I then placed my attention to the area of the mass that was attached to the small bowel, this area was closely intertwine with the small bowel wall at the level of the mesentery. I used careful sharp dissection to start liberating the mass, small amount of bleeding from the mesentery of the small bowel was noted which was controlled with a #3-0 Vicryl. I then continued the dissection using careful blunt dissection with peanut which allowed me to separate the mass from the small bowel after finding an adequate cleavage plane. Once the mass was completely this was sent as a specimen. I then proceeded to examine the small bowel, no evidence of perforation was noted by the 1.5 to 2 cm serosal tear was noted on the mesenteric edge of the small bowel. Since there was no evidence of perforation or exposed mucosa I decided to proceed with simple repair with #3-0 Vicryl. The serosal tunnel was completely repaired, after repair was completed bowel was reexamined and noted to be viable no evidence of additional injuries noted. The small bowel was irrigated with about 500 cc of saline. Since the surgical intervention was being done through a final stain incision I was not able to run the complete bowel from the ligament of Treitz to the ileocecal valve. I was able to examine the bowel proximal and distal to the area of attachment to the mass and appear healthy. The patient remained in the operative room with REGIONAL ENVIRONMENTAL MANAGER. Before I left the OR room I asked anesthesia to place an NG tube for postoperative decompression.
--- NOTE | 2024-03-10 16:07 | P.BOP_ITS ---
Date of Procedure: 03/10/24 Surgeon: Pradip Fofana MD Cashier Or Checker Stock Clerk(s): Procedure(s) performed: Exploratory laparotomy, excision of ovarian fibroma versus fibroid Findings of the procedure(s): Enlarged fibroma like mass adhered to large bowel Estimated blood loss: 1000 Specimen(s) removed: Ovarian mass versus pedunculated fibroid Post-operative diagnosis: Status post exploratory laparotomy
--- NOTE | 2024-03-10 16:09 | PM.OP ---
Operative Report Date of procedure: March 10, 2024 Pre-op diagnosis: Post hysterectomy and bilateral salpingo-oophorectomy Postoperative bleeding Post-op diagnosis: same Post-op diagnosis: Heart fibroid like mass measuring approximately 12 cm Procedure done: Exploratory laparotomy Excision of fibroid mass Specimens removed/disposition: Fibroid mass Surgeon: Pradip Fofana MD Carton Forming Machine Operator: Isidoro Menon MD Estimated blood loss (mL): 1,000 Procedure: After the patient have been in PACU. She was noted to be tachycardic and hypotensive. A FAST ultrasound exam was performed, fluid in the pelvis was noted and the decision was made to take the patient back to OR for possible postoperative bleeding. The patient was taken to the operating room, and after adequate level of general anesthesia was achieved, the patient was placed in the Trendelenburg position, prepped and draped in the usual sterile fashion. Subsequently, a Pfannenstiel incision was made and the incision was taken down to the fascia. The fascia was opened up sharply. The fascia was extended to the length of the incision using the Madrigal scissors. At this time, the rectus muscles were dissected from the fascia superiorly and inferiorly to the symphysis pubis. The midline rectus muscles were opened sharply and extended superiorly and inferiorly. The peritoneum was visualized, grasped, opened sharply, and extended superiorly and inferiorly towards the bladder. The abdominal contents were packed superiorly away from the operative site using the lap packs. At this time, the pelvis was noted. The Obed self-retaining retractor was placed. A large hard mass like a fibroid was noted in the pelvis. This mass was noted to be bleeding at a small spot. At that time the mass was mobilized out of the pelvis and brought out of the incision, it was noticed to have bowel adhesions. At this time an intraoperative consultation with general surgeon was requested. Dr. Menon came in the OR and scrubbed in the case. He dissected the bowels of this mass, and the mass was sent to pathology. Dr. Menon repair the bowel' serosal surface to where the mass was adhered. Then after evacuating all blood clots from the pelvis and good hemostasis had been confirmed and no more bleeding was noted. The cuff was intact with no bleeding noted. The bladder was visualized and no bleeding was noted. Surgicel was noted over the vaginal cuff. The Obed self-retaining retractor was removed as well as the anterior and inferior blades. The lap packs were removed, and at this time, general closure of the abdomen was carried out. The peritoneum was closed with a 2-0 Vicryl suture and continuous running suture. The fascia was closed using a #1 Vicryl suture from each corner to the midline. The adipose layer was infiltrated with Exparell for pain management. No bleeding was noted. The subcutaneous tissue was then reapproximated using plain sutures and interrupted sutures, and the skin was closed using Insorb absorbable subcuticular duke. The patient tolerated the procedure well and was transferred to the intensive care unit in stable condition. 2 units of packed red blood cells were given IntraOp.
[2024-03-10] MEDS: ondansetron 2 mg/ML SDV 2 mL 4 MG IVP (16:35)
[2024-03-10] MEDS: dextrose 5%-lactated ringers 1,000 ML 125 ML IV (16:36)
[2024-03-10] MEDS: ketorolac 30 mg/mL INJ IVP (16:39)
--- NOTE | 2024-03-10 16:58 | P.CONIM_ITS ---
Providers/Reason For Consult 2 Consulting Physician/Specialty*: Glenn Lopez MD, hospitalist Reason for Consult*: Hypotension, blood loss Attending Physician: Pradip Fofana MD Primary Care Provider: Gilbert Walker MD History of Present Illness History of Present Illness Olga Francois is a 48 year old female Who underwent a BENNETT/BSO earlier today for abnormal uterine bleeding, fibroid. Approximately 1000 cc of blood loss were noted. In recovery, there was concern about bleeding so patient returned to the OR. Exploratory laparotomy demonstrated an ovarian fibroma versus fibroid with adherence to large bowel. 1000 cc of blood loss with this surgery was noted. Surgery assisted and noted another 150 cc of blood loss and performed an intra- abdominal lysis of adhesions and repair of small bowel serosal tear. Intraoperatively patient received 3 units of blood, and albumin for hypotension. On arrival to the ICU hypotension was noted and she was placed on a low-dose of norepinephrine. She also received significant IV fluids. She is currently on D5 LR at 125 cc an hour. Patient is currently still sleepy following surgery. This limits her history. Medications/Allergies Home Medications Medication Instructions Recorded Confirmed Last Taken Type metoclopramide HCl 10 mg tablet 10 mg PO TID PRN nausea and 11/28/22 03/09/24 Unknown Rx (Reglan) vomiting #60 tabs sumatriptan succinate 100 mg 50 mg (1/2 x 100 mg) PO .Q4 PRN 11/28/22 03/09/24 Unknown Rx tablet (Imitrex) migraine headache #10 tabs acetaminophen 325 mg capsule 325 mg PO Q4H PRN fever or pain 10/22/23 03/09/24 Unknown Rx #60 caps ibuprofen 800 mg tablet 800 mg PO TID PRN pain #60 tabs 10/22/23 03/09/24 Unknown Rx cholestyramine (with sugar) 4 gram 1 ea PO DAILY #378 grams 12/09/23 03/09/24 03/09/24 Rx oral powder escitalopram oxalate 10 mg tablet 10 mg PO DAILY #90 tabs 12/09/23 03/09/24 03/09/24 Rx (Lexapro) norethindrone 0.5 mg-ethinyl 1 tab PO DAILY #84 tabs 12/09/23 03/09/24 03/09/24 Rx estradiol 35 mcg tablet (Nortrel) propranolol 20 mg tablet 20 mg PO BID #180 tabs 12/09/23 03/09/24 03/09/24 Rx atorvastatin 20 mg tablet 20 mg PO DAILY #90 tabs 12/30/23 03/09/24 03/09/24 Rx Allergies Allergy/AdvReac Type Severity Reaction Status Date / Time Penicillins Allergy Intermediate rash Verified 03/10/24 08:04 simvastatin [From Zocor] Allergy Intermediate back pain Verified 03/10/24 08:04 Sulfa (Sulfonamide Allergy Intermediate hives Verified 03/10/24 08:04 Antibiotics) Current Medications Generic Name Dose Route Start Last Admin Trade Name Freq PRN Reason Stop Dose Admin Dextrose/Lactated Ringer's 1,000 mls @ 125 mls/hr 03/10/24 16:30 03/10/24 16:36 Dextrose 5%-Lactated Ringers IV 125 mls/hr .Q8H TRINY Administration Ketorolac Tromethamine 30 mg 03/10/24 16:30 03/10/24 16:39 Ketorolac 30 Mg/Ml Inj IVP 03/11/24 10:31 30 mg Q6H TRINY Administration Ondansetron HCl 4 mg 03/10/24 16:27 03/10/24 16:35 Ondansetron 2 Mg/Ml Sdv 2 Ml IVP 4 mg Q4H PRN Administration NAUSEA PFSH Acute 2 PFSH: Medical History Migraine Hyperlipidemia Social History Smoking and tobacco/nicotine status: never used tobacco/nicotine Female Reproductive History: Date of last menstrual period: 02/26/24 Vitals/I&O/Wt Last Vital Signs Temp 97.0 F L 03/10/24 12:21 Pulse 102 H 03/10/24 16:22 Resp 20 H 03/10/24 16:22 BP 112/50 03/10/24 13:00 Pulse Ox 98 03/10/24 16:22 O2 Del Method Nasal Cannula 03/10/24 16:22 O2 Flow Rate 6 03/10/24 16:22 03/10/24 03/10/24 03/10/24 06:59 14:59 22:59 Intake Total 2700 / 2700 350 / 3050 Output Total 1100 / 1100 Balance 1600 / 1600 350 / 1950 Weight last 48 hrs Weight 122.924 kg Physical Exam 2 Narrative: General Exam is a sleepy and sedated female, who can open eyes after significant stimuli. HEENT: Atraumatic and normocephalic. Oropharynx clear Neck is supple no lymphadenopathy or megaly Cardiovascular tachycardic, no murmur Lungs clear Abdomen dressing, clean and dry exam is deferred Extremities no cyanosis clubbing edema Skin no rash Neuro no obvious focal deficits Urinary Catheter Management: Mcguire: Cath Placed During This Visit: yes Urinary Catheter Date of Insertion: 03/10/24 Urinary Catheter Time of Insertion: 10:11 Data 03/10/24 12:34 03/10/24 08:20 Other Labs: Preoperative hemoglobin 12.9 Pelvic ultrasound, August 2023 demonstrated enlarged uterus with multiple uterine fibroids and thickened endometrium A&P Assessment and plan (1) S/P exploratory laparotomy: Patient underwent BENNETT/BSO. In recovery there was concern of bleeding and she was taken back for an exploratory laparotomy. There a mass was adhered to small bowel requiring surgical assistance with abdominal lysis of adhesions and repair of small bowel serosal tear. During surgery she lost a significant amount of blood, likely between 2 to 3 L She received units of packed red blood cells Postoperatively she is recovering in the ICU and has had some hypotension, requiring a low-dose of norepinephrine. (2) Hypotension: Continue norepinephrine currently Wean off as tolerated Continue IV fluids ordered by surgery and 125 cc an hour Recheck hemoglobin later this afternoon Last hemoglobin was 9.2 Secondary to her hypotension, with possibility of renal dysfunction following will discontinue her ibuprofen and Toradol until repeat testing can be done tomorrow (3) Acute blood loss as cause of postoperative anemia: Follow hemoglobin. Repeat hemoglobin already ordered by gynecology. If any significant bleeding could consider repeat later tonight, otherwise tomorrow morning Plan Thank you for this consultation, we will continue to follow along with you Consult Attestations 2 Medical Necessity Statement: As per primary Diagnoses S/P exploratory laparotomy Z98.890 Hypotension I95.9 Acute blood loss as cause of postoperative anemia D62 Time Spent (min) 53
[2024-03-10] MEDS: norepinephrine 4 MG/250 ML BAG 7.5 MG IV (17:02)
[2024-03-10 19:16] LABS: Mean Corpuscular HGB Conc 30.2 g/dL (30-55); Mean Corpuscular Hemoglobin 27.8 pg (27-33); Mean Corpuscular Volume 91.9 fl (85-98); Mean Platelet Volume 10.5 fL (7.4-10.4); Platelet Count 211 10^3/cmm (157-399); Red Blood Count 4.46 10^6/uL (3.85-5.65); Red Cell Distribution Width 17.5 % (12.1-15.1); White Blood Count 17.06 10^3/uL (3.29-11.43)
--- NOTE | 2024-03-10 19:22 | PC.NURSE ---
NPO w/ Meds: Called Dr. Menon @1919 regarding pain meds and NPO diet order. New order to change diet order to NPO w/ sips, chips, and meds.
[2024-03-10] MEDS: HYDROcodone-acetaminophen 5-325 mg Tablet PO (19:30)
[2024-03-10 19:33] LABS: Total Cells Counted 100 (0-100)
[2024-03-10 19:35] LABS: Band Neutrophils Absolute 1.2 10^3/cmm (0.0-1.2); Eosinophils 0 %; Lymphocytes 16 %
[2024-03-10 19:36] LABS: Absolute Neutrophil 13.8 10^3/cmm (1.4-6.5); Absolute Segmented Neutrophil 12.6 10/cmm (1.6-7.1); Monocytes Absolute 0.5 10^3/cmm (0.1-0.6); Platelet Estimate Normal (Normal); Segmented Neutrophils 74 %
[2024-03-10] MEDS: acetaminophen 1,000 MG/100 ML PIGGYBACK 400 MG IV (19:58)
[2024-03-10] MEDS: HYDROmorphone 1 mg/mL INJ 1 mL 0.5 MG IVP (20:00)
[2024-03-11] VITALS (31 sets, daily range): BP systolic 93–135; BP diastolic 54–82; PULSE 102–120; RESP 14–26; TEMP 36.5–37.1; O2SAT 91–98
[2024-03-11] MEDS: dextrose 5%-lactated ringers 1,000 ML 125 ML IV ×3 (00:32→16:47)
[2024-03-11] MEDS: HYDROmorphone 1 mg/mL INJ 1 mL 0.5 MG IVP ×2 (02:27→13:09)
[2024-03-11] MEDS: acetaminophen 1,000 MG/100 ML PIGGYBACK 400 MG IV ×2 (04:31→12:10)
[2024-03-11 04:37] LABS: Basophils % 0.3 %; Hematocrit 31.3 % (36-47); Lymphocytes # 1.8 10^3/uL (0.8-4.8); Lymphocytes % 17.9 %; Mean Corpuscular HGB Conc 31.6 g/dL (30-55); Mean Corpuscular Hemoglobin 27.8 pg (27-33); Mean Corpuscular Volume 87.9 fl (85-98); Monocytes # 1.2 10^3/uL (0.2-0.9); Monocytes % 11.4 %; Neutrophils # 7.11 10^3/uL (1.8-7.7); Neutrophils % 69.7 %; Nucleated Red Blood Cells % 0 %; Platelet Count 180 10^3/cmm (157-399); Red Blood Count 3.56 10^6/uL (3.85-5.65); Red Cell Distribution Width 18.1 % (12.1-15.1)
[2024-03-11 05:06] LABS: Alanine Aminotransferase 15 U/L (0-33); Albumin Level 3.4 g/dL (3.5-5.2); Alkaline Phosphatase 49 U/L (35-105); Anion Gap 17.6 (5-19); Aspartate Amino Transferase 30 U/L (0-32); Blood Urea Nitrogen 11 mg/dL (6-20); Calcium 7.9 mg/dL (8.5-10.5); Carbon Dioxide 19 mmol/L (22-29); Chloride 109 mmol/L (98-107); Creatinine Clr Calc Pharmacy 111.7679; Globulin 2.3 g/dL (1.3-4.6); Glomerular Filtration Rate 76.9 mL/min (90-130); Glucose 181 mg/dL (65-115); Osmolality Calculated 296 mOsm/kg (285-295); Potassium 4.6 mmol/L (3.5-5.1); Sodium 141 mmol/L (136-145); Total Bilirubin 0.4 mg/dL (0.15-1.2); Total Protein 5.7 g/dL (6.6-8.7)
--- NOTE | 2024-03-11 08:18 | P.PN_ITS ---
Subjective 2 Subjective: Postoperative day 1 status post total hysterectomy and exploratory laparotomy for intra-abdominal mass that required lysis of additions and repair of a serosal tear in the small bowel. Patient is doing well, no significant abdominal pain, no nausea nor vomiting, has not passed gas or had a bowel movement yet. Vitals/I&O/Wt Last Vital Signs Temp 98.4 F 03/11/24 04:55 Pulse 102 H 03/11/24 06:30 Resp 23 H 03/11/24 06:30 BP 116/61 03/11/24 06:30 Pulse Ox 96 03/11/24 06:30 O2 Del Method Nasal Cannula 03/11/24 06:30 O2 Flow Rate 2 03/11/24 06:30 03/10/24 03/11/24 03/11/24 22:59 06:59 14:59 Intake Total 1394.125 / 4094.125 1312.584 / 5406.709 Output Total 1000 / 2100 750 / 2850 Balance 394.125 / 1994.125 562.584 / 2556.709 Weight last 48 hrs Weight 275 lb Weight 275 lb 9.245 oz Weight 271 lb Physical Exam 2 Narrative: Patient is alert and oriented, denies nausea, abdominal exam is benign surgical incisions covered with dressing abdomen is soft minimally tender to palpation which is appropriate. Urinary Catheter Management: Mcguire: Cath Placed During This Visit: yes Urinary Catheter Date of Insertion: 03/10/24 Urinary Catheter Time of Insertion: 10:11 Data 03/11/24 04:19 03/11/24 04:19 A&P Assessment and plan (1) Abdominal pain: Plan Postoperative day 1 status post ex lap and excision of intra-abdominal mass that will require lysis of additions and repair of small bowel serosal tear. Patient is doing well, plan is for expectant management awaiting return of bowel function before advancing diet. Patient can have ice chips today and she has been counseled on ambulation and use of incentive spirometer. Please minimize use of opiates and other medications that can decrease bowel motility. Laboratory workup this morning shows improvement of the white count. -N.p.o. with ice chips and meds -Ambulate as tolerated -Pain control -Incentive spirometer -Continue to trend labs Attestations 2 Medical Necessity Statement*: Per primary Coding Level of Care Code Acute Code for Chg Fwd Diagnoses Abdominal pain R10.9
[2024-03-11] MEDS: HYDROcodone-acetaminophen 5-325 mg Tablet PO ×2 (08:42→20:50)
[2024-03-11] MEDS: docusate sodium 100 mg Capsule PO ×2 (08:50→20:11)
--- NOTE | 2024-03-11 10:36 | P.PN_ITS ---
Subjective 2 Subjective: Patient relates she is doing okay this morning. Has been burping. Some pain. Has not passed any flatus yet. NG was removed. Medications: Reviewed: Yes Vitals/I&O/Wt Last Vital Signs Temp 98.4 F 03/11/24 04:55 Pulse 102 H 03/11/24 06:30 Resp 23 H 03/11/24 06:30 BP 116/61 03/11/24 06:30 Pulse Ox 96 03/11/24 06:30 O2 Del Method Nasal Cannula 03/11/24 06:30 O2 Flow Rate 2 03/11/24 06:30 03/10/24 03/11/24 03/11/24 22:59 06:59 14:59 Intake Total 1394.125 / 4094.125 1312.584 / 5406.709 233.333 / 233.333 Output Total 1000 / 2100 750 / 2850 Balance 394.125 / 1994.125 562.584 / 2556.709 233.333 / 233.333 Weight last 48 hrs Weight 124.738 kg Weight 125 kg Weight 122.924 kg Physical Exam 2 Narrative: General Exam no distress Neck is supple no lymphadenopathy or megaly Cardiovascular tachycardic, no murmur Lungs clear Abdomen dressing, clean and dry, positive bowel sounds exam is deferred Extremities no cyanosis clubbing edema Urinary Catheter Management: Mcguire: Cath Placed During This Visit: yes Urinary Catheter Date of Insertion: 03/10/24 Urinary Catheter Time of Insertion: 10:11 Data 03/11/24 04:19 03/11/24 04:19 A&P Assessment and plan (1) S/P exploratory laparotomy: Patient underwent BENNETT/BSO. In recovery there was concern of bleeding and she was taken back for an exploratory laparotomy. There a mass was adhered to small bowel requiring surgical assistance with abdominal lysis of adhesions and repair of small bowel serosal tear. During surgery she lost a significant amount of blood, likely between 2 to 3 L She received 3 units of packed red blood cells Postoperatively she is recovering in the ICU and has had some hypotension, requiring a low-dose of norepinephrine. She is off norepinephrine. Hemoglobin is stable. No evidence of active bleeding. (2) Hypotension: Off norepinephrine Renal function okay (3) Acute blood loss as cause of postoperative anemia: Hemoglobin currently stable, no evidence of active bleeding Plan Thank you for this consultation, we will sign off. Call with any concerns Attestations 2 Medical Necessity Statement*: As per primary Diagnoses S/P exploratory laparotomy Z98.890 Hypotension I95.9 Acute blood loss as cause of postoperative anemia D62 Time Spent (min) 20
--- NOTE | 2024-03-11 11:49 | P.PN_ITS ---
Subjective 2 Subjective: Mrs. Francois 48-year-old female post vaginal hysterectomy and exploratory laparotomy postoperative day 1.Refers feeling better Vitals/I&O/Wt Last Vital Signs Temp 98.4 F 03/12/24 06:00 Pulse 109 H 03/12/24 06:00 Resp 16 03/12/24 06:00 BP 110/61 03/12/24 06:00 Pulse Ox 93 03/12/24 06:00 O2 Del Method Room Air 03/12/24 06:00 O2 Flow Rate 2 03/11/24 06:30 03/11/24 03/12/24 03/12/24 22:59 06:59 14:59 Intake Total 1455.75 / 1936.192 4798 / 3181.083 Output Total 1150 / 1900 200 / 2100 Balance 305.75 / -60.917 1142 / 1081.083 Weight last 48 hrs Weight 124.738 kg Weight 125 kg Physical Exam 2 Narrative: GA: Alert and oriented ?3. HEENT: WNL. Heart: Regular rate and rhythm. Lungs: Clear to auscultation bilaterally. Abdomen: Bowel sounds present, nontender[, minimal tenderness, incision clean and dry, no redness, pain or edema]. CONVENTIONS RESERVATIONIST: spotting bleeding. Extremities: No edema, no cyanosis, no calves pain. Urinary Catheter Management: Mcguire: Cath Placed During This Visit: yes, but has since been removed by the nurse Reason for Continuing Indwelling Catheter: Decision to DC Catheter Urinary Catheter Date of Insertion: 03/10/24 Urinary Catheter Time of Insertion: 10:11 Date Urinary Catheter Removed: 03/11/24 Time Urinary Catheter Discontinued: 18:15 Data 03/13/24 04:15 03/12/24 08:24 A&P Assessment and plan (1) Status post vaginal hysterectomy: Mrs. Francois 48-year-old female post vaginal hysterectomy and exploratory laparotomy, removal of abdominal mass postoperative day 1. Patient is sitting on the chair alert and responsive. She is afebrile hemodynamically stable. Refers pain in the control. Feeling better than yesterday. Hospitalist refers patient can be transferred to the woman's schuster. (2) S/P exploratory laparotomy: Plan Transferred to ADMINISTRATOR OF HOME HEALTH floor. Maintain n.p.o. until passing flatus Continue postop observation Attestations 2 Medical Necessity Statement*: In my professional opinion per admitting diagnosis. Coding Level of Care Code Acute Code for Chg Fwd Diagnoses Status post vaginal hysterectomy Z90.710 S/P exploratory laparotomy Z98.890
--- NOTE | 2024-03-11 12:07 | PC.NURSE ---
Report called to OB. Report given to Lance.
--- NOTE | 2024-03-11 12:45 | PC.NURSE ---
Pt transferred via W/C to OB 12. Mother gathered up personal belonings. Update given to Lance: IV tylenol admin.
[2024-03-11] MEDS: lactated ringers 500 ML 999 ML IV (20:12)
[2024-03-12] VITALS (17 sets, daily range): BP systolic 110–150; BP diastolic 58–85; PULSE 93–120; RESP 14–16; TEMP 36.7–42.2; O2SAT 93–100
[2024-03-12] MEDS: HYDROmorphone 1 mg/mL INJ 1 mL 0.5 MG IVP (00:27)
[2024-03-12] MEDS: dextrose 5%-lactated ringers 1,000 ML 125 ML IV (02:57)
[2024-03-12 05:13] LABS: Basophils # 0.1 10^3/uL (0.0-0.1); Basophils % 0.4 %; Eosinophils % 0.1 %; Hematocrit 23.8 % (36-47); Lymphocytes % 24.6 %; Mean Corpuscular HGB Conc 31.5 g/dL (30-55); Mean Corpuscular Hemoglobin 27.8 pg (27-33); Mean Corpuscular Volume 88.1 fl (85-98); Monocytes # 1.2 10^3/uL (0.2-0.9); Neutrophils # 7.93 10^3/uL (1.8-7.7); Neutrophils % 64.3 %; Nucleated Red Blood Cells % 0 %; Platelet Count 154 10^3/cmm (157-399); Red Cell Distribution Width 17.8 % (12.1-15.1); White Blood Count 12.32 10^3/uL (3.29-11.43)
[2024-03-12] MEDS: HYDROcodone-acetaminophen 5-325 mg Tablet PO ×3 (05:30→20:46)
--- NOTE | 2024-03-12 07:00 | P.PN_ITS ---
Subjective 2 Subjective: Postoperative day 2 status post exploratory laparotomy with pelvic mass excision and lysis of additions with repair of serosal tear in the small bowel. Patient has been doing okay, endorses having passed gas over the last 24 hours has been ambulating, pain level has remained stable or slightly improved from yesterday, no nausea or vomiting. Vitals/I&O/Wt Last Vital Signs Temp 98.5 F 03/12/24 02:00 Pulse 104 H 03/12/24 02:00 Resp 14 03/12/24 02:00 BP 145/80 03/12/24 02:00 Pulse Ox 94 03/12/24 02:00 O2 Del Method Room Air 03/12/24 02:00 O2 Flow Rate 2 03/11/24 06:30 03/11/24 03/12/24 03/12/24 22:59 06:59 14:59 Intake Total 1455.75 / 2378.025 2460 / 3181.083 Output Total 1150 / 1900 200 / 2100 Balance 305.75 / -60.917 1142 / 1081.083 Weight last 48 hrs Weight 275 lb Weight 275 lb 9.245 oz Weight 271 lb Physical Exam 2 GI: OTHER: Current abdominal examination is benign, abdomen is soft, appropriately tender to palpation, there is positive bowel sounds in all quadrants. Urinary Catheter Management: Mcguire: Cath Placed During This Visit: yes, but has since been removed by the nurse Reason for Continuing Indwelling Catheter: Decision to DC Catheter Urinary Catheter Date of Insertion: 03/10/24 Urinary Catheter Time of Insertion: 10:11 Date Urinary Catheter Removed: 03/11/24 Time Urinary Catheter Discontinued: 18:15 Data 03/12/24 04:45 03/11/24 04:19 A&P Assessment and plan (1) Abdominal pain: (2) Intraabdominal mass: Plan This is a 48-year-old female who is postoperative day 2 status post total hysterectomy and exploratory laparotomy with excision of pelvic mass requiring lysis of adhesions from the small bowel and repair of small bowel serosal tear. Patient has been doing okay over the last 24 hours, vital signs are stable she remains slightly tachycardic. Laboratory workup shows slight uptrend of the white count today and a drop in the hemoglobin to 7.5. Clinically though she is improving, has been passing gas no significant abdominal pain there is good bowel sounds. We will plan to start the patient on full liquid diet, if there is good tolerance by tomorrow and there is no further increase in the white count or other warning signs we will proceed with regular diet in the morning tomorrow, if there is any changes in clinical status or if there is worsening of the white count we might obtain a CT scan of the abdomen and pelvis with contrast before advancing diet. Patient was encouraged to ambulate. -Full liquid diet -Encourage ambulation -Consider blood transfusion as needed as patient remains tachycardic and hemoglobin has dropped -All other management per primary Attestations 2 Medical Necessity Statement*: Per primary Coding Level of Care Code Acute Code for Chg Fwd Diagnoses Abdominal pain R10.9 Intraabdominal mass R19.00
[2024-03-12 08:31] LABS: Basophils % 0.3 %; Eosinophils % 0.1 %; Lymphocytes % 26.4 %; Mean Corpuscular HGB Conc 31.7 g/dL (30-55); Mean Corpuscular Hemoglobin 28.2 pg (27-33); Mean Corpuscular Volume 88.8 fl (85-98); Mean Platelet Volume 10.4 fL (7.4-10.4); Monocytes # 1.2 10^3/uL (0.2-0.9); Monocytes % 10.2 %; Neutrophils # 7.16 10^3/uL (1.8-7.7); Neutrophils % 62.3 %; Nucleated Red Blood Cells % 0 %; Platelet Count 145 10^3/cmm (157-399); Red Blood Count 2.59 10^6/uL (3.85-5.65); Red Cell Distribution Width 17.7 % (12.1-15.1); White Blood Count 11.49 10^3/uL (3.29-11.43)
[2024-03-12 08:57] LABS: Alanine Aminotransferase 13 U/L (0-33); Albumin Level 3.2 g/dL (3.5-5.2); Alkaline Phosphatase 48 U/L (35-105); Anion Gap 16.7 (5-19); Aspartate Amino Transferase 23 U/L (0-32); Blood Urea Nitrogen 6 mg/dL (6-20); Calcium 7.8 mg/dL (8.5-10.5); Carbon Dioxide 22 mmol/L (22-29); Chloride 106 mmol/L (98-107); Creatinine Clr Calc Pharmacy 178.5985; Globulin 2.4 g/dL (1.3-4.6); Glomerular Filtration Rate 132.2 mL/min (90-130); Glucose 146 mg/dL (65-115); Osmolality Calculated 292 mOsm/kg (285-295); Potassium 3.7 mmol/L (3.5-5.1); Sodium 141 mmol/L (136-145); Total Bilirubin 0.3 mg/dL (0.15-1.2); Total Protein 5.6 g/dL (6.6-8.7)
--- NOTE | 2024-03-12 13:36 | PM.PN ---
Subjective Subjective: Postoperative day 3 status post total hysterectomy, excision of intra-abdominal mass, lysis of additions and repair of serosal tear of the small bowel. Patient is doing very well, abdominal pain has significantly improved, vital signs have remained stable. Heart rate has improved after blood transfusion. White count is normal today. She is passing good amount of gas, tolerating diet but has not had a bowel movement yet. Vitals/I&O/Wt Last Vital Signs Temp 97.8 F 03/13/24 10:20 Pulse 97 03/13/24 10:20 Resp 16 03/13/24 10:20 BP 165/81 03/13/24 10:20 Pulse Ox 93 03/13/24 06:00 O2 Del Method Room Air 03/13/24 06:00 O2 Flow Rate 2 03/11/24 06:30 03/12/24 03/13/24 03/13/24 22:59 06:59 14:59 Intake Total 1943 / 3209.25 500 / 3709.25 Output Total 300 / 900 200 / 1100 400 / 400 Balance 1643 / 2309.25 300 / 2609.25 -400 / -400 Physical Exam Narrative: GA: Alert and oriented ?3. HEENT: WNL. Heart: Regular rate and rhythm. Lungs: Clear to auscultation bilaterally. Abdomen: Bowel sounds present, moderate tenderness, incision clean and dry, no redness, pain or edema. STOCKROOM ATTENDANT: spotting bleeding. Extremities: No edema, no cyanosis, no calves pain. Urinary Catheter Management: Mcguire: Cath Placed During This Visit: yes, but has since been removed by the nurse Reason for Continuing Indwelling Catheter: Decision to DC Catheter Urinary Catheter Date of Insertion: 03/10/24 Urinary Catheter Time of Insertion: 10:11 Date Urinary Catheter Removed: 03/11/24 Time Urinary Catheter Discontinued: 18:15 Data 03/13/24 04:15 03/12/24 08:24 A&P Assessment and plan (1) Status post vaginal hysterectomy: Mrs. Francois 48-year-old female post vaginal hysterectomy and exploratory laparotomy postoperative day 2. She is afebrile however she is feels tachycardic and refers some dizziness when ambulating. A drop in the hemoglobin to 7.5 noted and 2 units of packed red blood cells ordered. Refers pain in under control. Feeling better yesterday. (2) S/P exploratory laparotomy: Plan Encourage ambulation Advance diet Continue postop observation Attestations Medical Necessity Statement*: In my professional opinion per admitting diagnosis Coding Level of Care Code Acute Code for Chg Fwd Diagnoses Status post vaginal hysterectomy Z90.710 S/P exploratory laparotomy Z98.890
[2024-03-12] MEDS: docusate sodium 100 mg Capsule PO ×2 (13:57→20:46)
[2024-03-12] MEDS: sodium chloride 0.9% 100 mL Bag 50 ML IV ×2 (13:58→16:59)
[2024-03-12 23:30] LABS: Hematocrit 26.7 % (36-47); Mean Corpuscular HGB Conc 32.6 g/dL (30-55); Mean Corpuscular Hemoglobin 28.9 pg (27-33); Mean Corpuscular Volume 88.7 fl (85-98); Mean Platelet Volume 10.5 fL (7.4-10.4); Platelet Count 148 10^3/cmm (157-399); Red Blood Count 3.01 10^6/uL (3.85-5.65); Red Cell Distribution Width 16.3 % (12.1-15.1); White Blood Count 10.32 10^3/uL (3.29-11.43)
[2024-03-13 02:00] VITALS: BP 130/83; PULSE 100; RESP 16; TEMP 36.9; O2SAT 95
[2024-03-13] MEDS: HYDROmorphone 1 mg/mL INJ 1 mL 0.5 MG IVP (02:10)
[2024-03-13 04:20] LABS: Basophils # 0.1 10^3/uL (0.0-0.1); Basophils % 0.6 %; Eosinophils # 0.1 10^3/uL (0.0-0.8); Eosinophils % 0.5 %; Hematocrit 27.9 % (36-47); Lymphocytes # 3.1 10^3/uL (0.8-4.8); Lymphocytes % 30.1 %; Mean Corpuscular HGB Conc 32.6 g/dL (30-55); Mean Corpuscular Volume 88.9 fl (85-98); Mean Platelet Volume 10.1 fL (7.4-10.4); Monocytes # 0.8 10^3/uL (0.2-0.9); Monocytes % 7.5 %; Neutrophils # 6.12 10^3/uL (1.8-7.7); Neutrophils % 60.2 %; Nucleated Red Blood Cells % 0.3 %; Platelet Count 152 10^3/cmm (157-399); Red Blood Count 3.14 10^6/uL (3.85-5.65); Red Cell Distribution Width 16.3 % (12.1-15.1); White Blood Count 10.16 10^3/uL (3.29-11.43)
--- NOTE | 2024-03-13 05:00 | PC.NURSE ---
This nurse entered room after patient hit call light at this time, complaining of feeling something on her bottom while going to the bathroom and that states it appears to be toilet paper or gauze. This nurse examined patient's peritoneal area and discovered packing falling out of the patient's vagina. Packing was removed by nurse without complications. Dr. Fofana was notified immediately after nurse exited room.
[2024-03-13] MEDS: HYDROcodone-acetaminophen 5-325 mg Tablet PO ×2 (05:20→14:29)
[2024-03-13 06:00] VITALS: BP 141/84; PULSE 90; RESP 16; TEMP 36.8; O2SAT 93
[2024-03-13] MEDS: tranexamic acid 1,000 MG/100 ML PREMIX 600 MG IV (06:04)
--- NOTE | 2024-03-13 09:25 | PM.PN ---
Subjective Subjective: Postoperative day 3 status post total hysterectomy, excision of intra-abdominal mass, lysis of additions and repair of serosal tear of the small bowel. Patient is doing very well, abdominal pain has significantly improved, vital signs have remained stable. Heart rate has improved after blood transfusion. White count is normal today. She is passing good amount of gas tolerating diet but has not had a bowel movement yet. Vitals/I&O/Wt Last Vital Signs Temp 98.2 F 03/13/24 06:00 Pulse 90 03/13/24 06:00 Resp 16 03/13/24 06:00 BP 141/84 03/13/24 06:00 Pulse Ox 93 03/13/24 06:00 O2 Del Method Room Air 03/13/24 06:00 O2 Flow Rate 2 03/11/24 06:30 03/12/24 03/13/24 03/13/24 22:59 06:59 14:59 Intake Total 1943 / 3209.25 500 / 3709.25 Output Total 300 / 900 200 / 1100 Balance 1643 / 2309.25 300 / 2609.25 Physical Exam GI: OTHER: Abdomen is soft, nontender nondistended, bowel sounds are positive. Urinary Catheter Management: Mcguire: Cath Placed During This Visit: yes, but has since been removed by the nurse Reason for Continuing Indwelling Catheter: Decision to DC Catheter Urinary Catheter Date of Insertion: 03/10/24 Urinary Catheter Time of Insertion: 10:11 Date Urinary Catheter Removed: 03/11/24 Time Urinary Catheter Discontinued: 18:15 Data 03/13/24 04:15 03/12/24 08:24 A&P Assessment and plan (1) Abdominal pain: (2) Intraabdominal mass: (3) S/P exploratory laparotomy: Plan Patient showing very good progression after surgical intervention. He is tolerating diet and passing good amount of gas. Has not had a bowel movement yet. I will advance his diet to regular and I will give her a dose of MiraLAX to stimulate bowel motility. At the moment she appears to be stable from the general surgery standpoint to transition to an outpatient setting, vital signs have remained stable for the last 48 hours and white count is normal. I have explained to the patient that ideally I will prefer her to have a bowel movement before leaving the hospital but if she is feeling okay and wishes to leave today I am agreeable with this plan. All other management per ASSEMBLER BODY team Attestations Medical Necessity Statement*: Per medical team Coding Level of Care Code Acute Code for Chg Fwd Diagnoses Abdominal pain R10.9 Intraabdominal mass R19.00 S/P exploratory laparotomy Z98.890
[2024-03-13] MEDS: polyethylene glycol 3350 Pkt 17 gm PO (09:48)
[2024-03-13] MEDS: ibuprofen 800 mg tablet PO (09:48)
[2024-03-13] MEDS: docusate sodium 100 mg Capsule PO (09:48)
[2024-03-13 10:20] VITALS: BP 165/81; PULSE 97; RESP 16; TEMP 36.6
--- NOTE | 2024-03-13 11:08 | PM.MISC ---
Miscellaneous Note Purpose of Documentation: Update on patient care Note: Tolerating diet and patient had a bowel movement. cleared for discharge from the general surgery standpoint.
--- NOTE | 2024-03-13 13:25 | PM.OBGYDC ---
Discharge Providers SUBSTATION OPERATOR APPRENTICE Date of Admission: 03/10/24 16:27 Date of Discharge: 03/13/24 Attending Provider at Admission: Pradip Fofana MD Attending Provider at Discharge: Pradip Fofana MD Primary Care Provider: Gilbert Walker MD Diagnoses at Discharge Discharge Diagnosis (1) Abdominal pain: Status: Acute Qualifiers: Abdominal location: generalized Qualified Code(s): R10.84 - Generalized abdominal pain (2) Intraabdominal mass: Status: Acute (3) S/P exploratory laparotomy: Status: Acute Reason for Visit Reason for Visit: D25.9 Hospital Course Hospital Course This is being here 48-year-old female G0, P0 with a history of abnormal uterine bleeding unresponsive to medical management diagnosed with uterine fibroids. She was admitted for planned total vaginal hysterectomy with bilateral salpingo-oophorectomy. The procedure was complicated by bleeding. During postop observation suspicions for bleeding, decision was made to take the patient back to the OR and performed an exploratory laparotomy. Doing laparotomy at weeks fibroid like mass adhered to bowel was encountered. An intraoperative consultation by general surgeon was requested. General surgeon dissected the bowel of the mass. The mass was sent for pathology. This mass have not been described in the ultrasound report. Patient received 4 units of packed red blood cells. Postobservation the first night postop in ICU. She was then transferred to SUBSTATION OPERATOR APPRENTICE floor. Diet was progressed slowly. She is afebrile and hemodynamically stable postoperatively 3, tolerating diet well. Has had 2 bowel movements today. Ambulating without difficulty, pain under control. She was counseled regarding pelvic rest for 6 weeks (no sex, no tampons, no vaginal douches). Return to the emergency room if any fever, increased bleeding or pain. Physical Exam Narrative: GA: Alert and oriented ?3. HEENT: WNL. Heart: Regular rate and rhythm. Lungs: Clear to auscultation bilaterally. Abdomen: Bowel sounds present, nontender, minimal tenderness, incision clean and dry, no redness, pain or edema. TELEPHONE INSTALLER: spotting bleeding. Extremities: No edema, no cyanosis, no calves pain. Urinary Catheter Management: Mcguire: Cath Placed During This Visit: yes, but has since been removed by the nurse Reason for Continuing Indwelling Catheter: Decision to DC Catheter Urinary Catheter Date of Insertion: 03/10/24 Urinary Catheter Time of Insertion: 10:11 Date Urinary Catheter Removed: 03/11/24 Time Urinary Catheter Discontinued: 18:15 History History History 0 Term 0 Miscarriages/Ectopic Living Children Discharge Data Studies Completed and Pending Pending at discharge Category Date Time Status CBC Auto Diff [Complete Blood Count w/Auto] AM LABS Lab 03/14/24 04:00 Ordered Pathology: Surgical [PTH] Routine Pth 03/10/24 11:38 Received Pathology: Surgical [PTH] Routine Pth 03/10/24 14:30 Received Laboratory Results WBC 10.16 10^3/uL (3.29-11.43) 03/13/24 04:15 RBC 3.14 10^6/uL (3.85-5.65) L 03/13/24 04:15 Hgb 9.10 g/dL (11.27-16.99) L 03/13/24 04:15 Hct 27.9 % (36-47) L 03/13/24 04:15 MCV 88.9 fl (85-98) 03/13/24 04:15 MCH 29.0 pg (27-33) 03/13/24 04:15 MCHC 32.6 g/dL (30-55) 03/13/24 04:15 RDW 16.3 % (12.1-15.1) H 03/13/24 04:15 Plt Count 152 10^3/cmm (157-399) L 03/13/24 04:15 MPV 10.1 fL (7.4-10.4) 03/13/24 04:15 Neut % (Auto) 60.2 % 03/13/24 04:15 Lymph % (Auto) 30.1 % 03/13/24 04:15 [place] % (Auto) 7.5 % 03/13/24 04:15 Eos % (Auto) 0.5 % 03/13/24 04:15 Baso % (Auto) 0.6 % 03/13/24 04:15 Neut # (Auto) 6.12 10^3/uL (1.8-7.7) 03/13/24 04:15 Lymph # (Auto) 3.1 10^3/uL (0.8-4.8) 03/13/24 04:15 [place] # (Auto) 0.8 10^3/uL (0.2-0.9) 03/13/24 04:15 Eos # (Auto) 0.1 10^3/uL (0.0-0.8) 03/13/24 04:15 Baso # (Auto) 0.1 10^3/uL (0.0-0.1) 03/13/24 04:15 Nucleated RBC % (auto) 0.3 % 03/13/24 04:15 Total Counted 100 (0-100) 03/10/24 18:41 Atypical Lymphs % Not Reportable 03/10/24 18:41 Absolute Neutrophils 13.8 10^3/cmm (1.4-6.5) H 03/10/24 18:41 Segmented Neutrophils 74 % 03/10/24 18:41 Abs Segm Neuts (Man) 12.6 10/cmm (1.6-7.1) H 03/10/24 18:41 Band Neutrophils 7.0 % 03/10/24 18:41 Abs Band Neuts (Man) 1.2 10^3/cmm (0.0-1.2) 03/10/24 18:41 Lymphocytes (Manual) 16 % 03/10/24 18:41 Monocytes (Manual) 3.0 % 03/10/24 18:41 Absolute Monocytes 0.5 10^3/cmm (0.1-0.6) 03/10/24 18:41 Eosinophils (Manual) 0 % 03/10/24 18:41 Absolute Eosinophils 0.0 10^3/cmm (0.0-0.7) 03/10/24 18:41 Basophils (Manual) 0.0 % 03/10/24 18:41 Absolute Basophils 0.0 10^3/cmm (0.0-0.2) 03/10/24 18:41 Nucleated RBCs # 0.0 /100WBC 03/13/24 04:15 Platelet Estimate Normal (Normal) 03/10/24 18:41 Sodium 141 mmol/L (136-145) 03/12/24 08:24 Potassium 3.7 mmol/L (3.5-5.1) 03/12/24 08:24 Chloride 106 mmol/L (98-107) 03/12/24 08:24 Carbon Dioxide 22 mmol/L (22-29) 03/12/24 08:24 Anion Gap 16.7 (5-19) 03/12/24 08:24 BUN 6 mg/dL (6-20) 03/12/24 08:24 Creatinine 0.5 mg/dL (0.5-0.9) 03/12/24 08:24 GFR Calculation 132.2 mL/min (90-130) H 03/12/24 08:24 Glucose 146 mg/dL (65-115) H 03/12/24 08:24 Calculated Osmolality 292 mOsm/kg (285-295) 03/12/24 08:24 Calcium 7.8 mg/dL (8.5-10.5) L 03/12/24 08:24 Total Bilirubin 0.3 mg/dL (0.15-1.2) 03/12/24 08:24 AST 23 U/L (0-32) 03/12/24 08:24 ALT 13 U/L (0-33) 03/12/24 08:24 Alkaline Phosphatase 48 U/L (35-105) 03/12/24 08:24 Total Protein 5.6 g/dL (6.6-8.7) L 03/12/24 08:24 Albumin 3.2 g/dL (3.5-5.2) L 03/12/24 08:24 Globulin 2.4 g/dL (1.3-4.6) 03/12/24 08:24 Urine Color Yellow (Yellow) 03/10/24 08:00 Urine Appearance Clear (CLEAR) 03/10/24 08:00 Urine pH 5 (5-7) 03/10/24 08:00 Ur Specific [place] 1.020 (1.005-1.030) 03/10/24 08:00 Urine Protein Neg (Negative) 03/10/24 08:00 Urine Glucose (UA) Norm (Normal) 03/10/24 08:00 Urine Ketones Negative (Negative) 03/10/24 08:00 Urine Blood Neg (Negative) 03/10/24 08:00 Urine Nitrate Negative (Negative) 03/10/24 08:00 Urine Bilirubin Neg (Negative) 03/10/24 08:00 Urine Urobilinogen Norm mg/dL (Negative) 03/10/24 08:00 Ur Leukocyte Esterase Negative (Negative) 03/10/24 08:00 Amorphous Sediment Not Reportable 03/10/24 08:00 Urine HCG, Qual Negative (Negative) 03/10/24 07:49 Blood Type O Positive 03/10/24 08:20 Rho(D) Type Rh positive 03/10/24 08:20 Antibody Screen Negative 03/10/24 08:20 Crossmatch See Detail 03/10/24 08:20 Vitals Last Vital Signs Temp 97.8 F 03/13/24 10:20 Pulse 97 03/13/24 10:20 Resp 16 03/13/24 10:20 BP 165/81 03/13/24 10:20 Pulse Ox 93 03/13/24 06:00 O2 Del Method Room Air 03/13/24 06:00 O2 Flow Rate 2 03/11/24 06:30 Results Labs OB ([facility]): Blood Type O Positive 03/10/24 Antibody Screen Negative 03/10/24 Hct 27.9 % (36-47) L 03/13/24 Hgb 9.10 g/dL (11.27-16.99) L 03/13/24 Rho(D) Type Rh positive 03/10/24 Plt Count 152 10^3/cmm (157-399) L 03/13/24 TSH 4.12 uIU/mL (0.27-4.20) 11/28/22 Pap Smear Interpret See note A 11/28/22 Discharge Plan Discharge Patient Disposition: Home Condition: Stable Prescriptions: New hydrocodone-acetaminophen 5-325 mg tablet 1 tab PO Q4H PRN (Reason: pain) Qty: 30 0RF docusate sodium [Colace] 100 mg capsule 100 mg PO BID Qty: 30 0RF ferrous sulfate [Iron (ferrous sulfate)] 325 mg (65 mg iron) tablet 325 mg PO BID Qty: 60 0RF ibuprofen 800 mg tablet 800 mg PO TID PRN (Reason: pain) Qty: 60 0RF nitrofurantoin macrocrystal 100 mg capsule 100 mg PO BID 3 Days Qty: 6 0RF Rx Instructions: must administer with a meal/food acetaminophen 325 mg capsule 325 mg PO Q4H PRN (Reason: fever or pain) Qty: 60 0RF Continued metoclopramide HCl [Reglan] 10 mg tablet 10 mg PO TID PRN (Reason: nausea and vomiting) Qty: 60 5RF sumatriptan succinate [Imitrex] 100 mg tablet 50 mg PO .Q4 PRN (Reason: migraine headache) Qty: 10 11RF escitalopram oxalate [Lexapro] 10 mg tablet 10 mg PO DAILY Qty: 90 3RF Nortrel 0.5/35 (28) 0.5-35 mg-mcg tablet 1 tab PO DAILY Qty: 84 3RF propranolol 20 mg tablet 20 mg PO BID Qty: 180 3RF cholestyramine (with sugar) 4 gram powder 1 ea PO DAILY Qty: 378 11RF Rx Instructions: 1 scoop PO daily; atorvastatin 20 mg tablet 20 mg PO DAILY Qty: 90 3RF ibuprofen 800 mg tablet 800 mg PO TID PRN (Reason: pain) Qty: 60 0RF acetaminophen 325 mg capsule 325 mg PO Q4H PRN (Reason: fever or pain) Qty: 60 0RF Discharge Orders: Discharge Order (Routine); Ordered 03/13/24 Ordered By: Pradip Fofana Referrals: Isidoro Menon MD [Physician] - 03/24/24 9:15 am () Discharge Diet: GI Soft and Soft Mechanical Discharge Activity: Limit activity as instructed Patient Instructions: Acute Wound Care (DC), Salpingo-Oophorectomy (GEN), Hysterectomy (GEN), Vaginal Hysterectomy (GEN), Exploratory Laparotomy (DC), Exploratory Laparotomy (GEN), OB Abdominal Surgery - C, OB Discharge Report, OB Food/Drug Interaction Guide, Opioid Safety, Post Anesthesia Care Discharge Attestations SUBSTATION OPERATOR APPRENTICE Time Spent in Discharge Care*: greater than 30 min Coding Level of Care Code Acute Code for Chg Fwd Diagnoses Generalized abdominal pain R10.84 Abdominal location: generalized Intraabdominal mass R19.00 S/P exploratory laparotomy Z98.890
[2024-03-13 14:15] VITALS: BP 167/89; PULSE 84; RESP 16; TEMP 36.6
== END 2024-03-13 14:35 | disposition home or self-care (01) | DRG 742 ==
LOC: OBGYN 12:31 → ICU 15:19 → OBGYN 03-12 01:55 → ICU 03-12 13:39
PROVIDERS: Internal Medicine; Surgery; Admitting Provider Obstetrics & Gynecology; PCP Family Medicine; Visit Provider Obstetrics & Gynecology
PROC: 0UT90ZZ Resection of Uterus, Open Approach (ICD-10-PCS; principal; 2024-03-10 09:20)
PROC: 0UT90ZZ Resection of Uterus, Open Approach (ICD-10-PCS; CPT 58720; 2024-03-10 09:20)
DX: D25.1 Intramural leiomyoma of uterus (principal); D62 Acute posthemorrhagic anemia; G43.909 Migraine, unspecified, not intractable, without status migrainosus; N93.9 Abnormal uterine and vaginal bleeding, unspecified; K66.0 Peritoneal adhesions (postprocedural) (postinfection); E78.5 Hyperlipidemia, unspecified; I95.9 Hypotension, unspecified; Z88.0 Allergy status to penicillin; Z88.2 Allergy status to sulfonamides; Z88.8 Allergy status to other drugs, medicaments and biological substances; Z79.899 Other long term (current) drug therapy
CPT/HCPCS: 36415; 36430; 80053; 81003; 81025; 85007; 85014; 85018; 85025; 85027; 86850; 86900; 86920; 88307; 88309; C9290; G0378; J0131; J1170; J1885; J1956; J2250; J2371; J2405; J2704; J3010; J3370; J3490; J7030; J7040; J7120; J7121; P9016; P9045

== ENCOUNTER → 2024-10-20 11:11 | Outpatient (BNVA) | payer OTHER, SELFPAY | PROVIDERS: PCP Family Medicine; Referring Provider Obstetrics & Gynecology; Visit Provider Psychiatry & Neurology Neurology | DX: E55.9 Vitamin D deficiency, unspecified (principal); R41.3 Other amnesia; R41.89 Other symptoms and signs involving cognitive functions and awareness; R41.0 Disorientation, unspecified | CPT/HCPCS: 36415; 80053; 82306; 82525; 82607; 82746; 83735; 83921; 84439; 84443; 84481; 86592 ==

== ENCOUNTER → 2024-10-26 13:51 | Outpatient (BNVA) | payer OTHER, SELFPAY | PROVIDERS: PCP Family Medicine; Visit Provider Family Medicine | DX: R30.0 Dysuria (principal); Z48.816 Encounter for surgical aftercare following surgery on the genitourinary system; D64.9 Anemia, unspecified | CPT/HCPCS: 81000; 85025; 87077; 87086; 87184 ==

== ENCOUNTER 2024-11-13 15:21 | Outpatient (CLI) | payer OTHER, SELFPAY ==
--- NOTE | 2024-11-13 15:30 | USCV_ITS ---
Alessandro Olga Age: 49 Gender: F : 1975 Exam Date: 11/13/2024 16:01 Ordering Phys: Jac Vincent MD Technologist: [employer] Exam Location: [facility] – [place] Indication: amnesia Risk Factors: Previous Vascular Surgery: Right Brachial BP: / Left Brachial BP: / Right Left Velocity (cm/s) Spectral Plaque Velocity (cm/s) Spectral Plaque Syst/Diast Broadening Syst/Diast Broadening 101.20/17.10 Prox CCA 70.90 / 11.60 101.50/18.70 Mid CCA 66.30 / 14.50 73.20/ 18.70 Distal CCA 65.10 / 14.30 71.20/ 12.40 Prox ICA 62.10 / 24.30 61.40/ 14.00 Mid ICA 54.40 / 19.80 74.50/ 25.50 Distal ICA 42.20 / 15.40 85.30 ECA 73.00 1.00 ICA/CCA 1.00 Antegrade Vertebral Antegrade 33.60/ 7.50 cm/s 33.70/ 8.30 cm/s Tri Subclavian Tri 107.9 119.8 0 0 CONCLUSIONS Right ICA stenosis <50%. Mild atheromatous plaque right carotid bulb/ICA. Left ICA stenosis <50%. Mild atheromatous plaque left carotid bulb/ICA. Normal antegrade Doppler flow noted in the right vertebral artery. Normal antegrade Doppler flow noted in the left vertebral artery. Yifan Holguin MD (Electronically Signed) Final Date: 15 Nov 2024 17:13 S
== END 2024-11-13 15:22 | disposition home or self-care (01) ==
LOC: RAD 15:22
PROVIDERS: PCP Family Medicine; Visit Provider Psychiatry & Neurology Neurology
DX: R41.3 Other amnesia (principal); R41.89 Other symptoms and signs involving cognitive functions and awareness; I65.23 Occlusion and stenosis of bilateral carotid arteries
CPT/HCPCS: 93880

== ENCOUNTER 2024-12-09 07:05 | Outpatient (CLI) | payer OTHER, SELFPAY ==
--- NOTE | 2024-12-09 07:15 | MR_ITS ---
WS: [id number] MRI BRAIN WITH AND WITHOUT CONTRAST HISTORY: headaches/ brain fog COMPARISON: None available. TECHNIQUE: Multiplanar imaging performed through the brain with MultiHance 20 ml's IV. No acute infarcts are seen. Connelly-white matter differentiation is well preserved. No infarcts or significant small vessel disease. No T2 or FLAIR signal abnormalities. No susceptibility artifacts or prior lacunar infarcts. Ventricles and extra-axial spaces are normal. Clivus and pituitary gland are normal. Visualized posterior fossa and brainstem are also normal. Postcontrast images are negative for masses or vascular malformations. Dural venous sinuses are normal. Paranasal sinuses: Well aerated with no significant disease. Mastoid air cells: Normal. Calvarium and scalp: Normal. MR/MR head wo/w con [id number] IMPRESSION: 1. Normal MRI brain with contrast. 2. No acute or prior infarcts. 3. No significant small vessel disease. 4. Normal enhancement. No mass.
[2024-12-09] MEDS: gadobenate dimeglumine 20 mL vial IV (07:45)
== END 2024-12-09 07:06 | disposition home or self-care (01) ==
PROVIDERS: PCP Family Medicine; Visit Provider Family Medicine
DX: R41.89 Other symptoms and signs involving cognitive functions and awareness (principal); G43.909 Migraine, unspecified, not intractable, without status migrainosus; R41.0 Disorientation, unspecified; R41.3 Other amnesia
CPT/HCPCS: 70553